=== PATIENT | male | born 1945 | race Caucasian/White ===

== ENCOUNTER 2018-12-27 18:01 | Inpatient (IN) | payer OTHER ==
[~2018-12-27] VITALS: Ht 170.2 cm; Wt 154.6 kg
[~2018-12-27 18:01] MED LIST: ASPI81CH PO; ATOR20 PO; Ambien10 MG PO; CHOL10002; CLON.5 PO; CODITUSSIN AC473 ML PO; FENO160 PO; FURO40 PO; Ferus150 MG; LOSARTAN POTAS100 MG PO; METO25; SERT100 PO; SERT50 PO; Synthroid25 MCG PO; TAMS.4ER PO
[2018-12-27 18:15] LABS: Calcium, Ionized (POC) 1.17 mmol/L (1.10-1.46); Chloride (POC) 101 mmol/L (98-108); Creatinine (POC) 1.3 mg/dL (0.8-1.3); Glucose (ISTAT POC) 193 mg/dL (70-99); Hemoglobin (POC) 11.6 g/dL (13.5-17.5); Potassium (POC) 3.8 mmol/L (3.5-5.5); Sodium (POC) 139 mmol/L (135-148); Total CO2 (POC) 22 mmol/L (21-32)
[2018-12-27 18:30] LABS: BASOPHILS ABSOLUTE AUTO 0.05 K/mm3 (0.00-0.23); BASOPHILS PERCENT AUTO 1 % (0-2); EOSINOPHILS ABSOLUTE AUTO 0.26 K/mm3 (0.00-0.68); EOSINOPHILS PERCENT AUTO 3 % (0-6); Hemoglobin 11.4 g/dL (13.5-17.5); IMMATURE GRAN ABSOLUTE AUTO 0.03 K/mm3 (0.00-0.10); IMMATURE GRAN PERCENT AUTO 0 % (0-1); LYMPHOCYTES ABSOLUTE AUTO 2.25 K/mm3 (0.84-5.20); LYMPHOCYTES PERCENT AUTO 25 % (21-46); MONOCYTES ABSOLUTE AUTO 0.48 K/mm3 (0.16-1.47); MONOCYTES PERCENT AUTO 5 % (4-13); Mean Corpuscular HGB 28.4 pg (26.0-34.0); Mean Corpuscular HGB Conc 31.7 g/dL (31.5-36.5); Mean Corpuscular Volume 90 fL (80-100); Mean Platelet Volume 9.7 fL (9.1-12.4); NEUTROPHILS ABSOLUTE AUTO 6.08 K/mm3 (1.96-9.15); NEUTROPHILS PERCENT AUTO 67 % (41-73); Platelet Count 172 K/mm3 (150-400); RDW Standard Deviation 45.8 fL (35.1-46.3); Red Blood Cell Count 4.02 M/mm3 (4.30-5.90); White Blood Cell Count 9.15 K/mm3 (4.00-11.30)
[2018-12-27] MEDS ORDERED: Flonase 0.05% N16 GM (18:37)
[2018-12-27] MEDS ORDERED: CLOP75 PO (18:37)
[2018-12-27] MEDS ORDERED: PANT40 PO (18:38)
[2018-12-27] MEDS ORDERED: Ranitidine HCl150 M1 PO (18:39)
[2018-12-27 18:44] LABS: International Normalized Ratio 1.05; Prothrombin Time Results 11.1 Sec (9.7-11.5)
[2018-12-27] MEDS ORDERED: FOLI1 PO (18:51)
[2018-12-27] MEDS ORDERED: B-121000 MC2 PO ×2 (18:52)
[2018-12-27 19:02] LABS: Albumin, Blood 2.9 g/dL (3.4-5.0); Albumin/Globulin Ratio 1.1 (0.8-1.8); Bilirubin, Total 0.6 mg/dL (0.1-1.0); Bun/Creatinine Ratio 16.3 (12.0-20.0); Calcium, Blood 8.3 mg/dL (8.5-10.1); Creatinine, Blood 1.29 mg/dL (0.60-1.20); Globulin, Blood 2.6 g/dL (2.2-4.0); Potassium, Blood 3.9 mmol/L (3.5-5.5); Total Protein, Blood 5.5 g/dL (6.4-8.2)
--- NOTE | 2018-12-27 22:40 | NUR ---
ASSUMED PT CARE PT ARRIVED ON UNIT VIA STRETCHER; MOVED OVER TO ICU BED; HOOKED UP TO HEART MONITOR. NSR NOTED WITH HR 70'S. BP 102/54. AFEBRILE TEMP: 97.3. PT IS ALERT AND ORIENTED; ABLE TO FOLLOW COMMANDS. PLEASANT AND COOPERATIVE WITH CARE. NS INFUSING AT 150MLS/HR VIA 18G TO RIGHT AC. PT HAS DARK, RED BLOOD NOTED TO STOOL. PT C/O DIARRHEA ALL DAY; NO EPISODES OF YET. PT DOES NOT APPEAR TO BE IN ANY ACUTE DISTRESS AT THIS TIME.
--- NOTE | 2018-12-27 23:40 | NUR ---
DR. MARTE AT BEDSIDE FOR GI CONSULTATION
[2018-12-28 03:46] LABS: Hematocrit 32.8 % (37.0-53.0); Hemoglobin 10.4 g/dL (13.5-17.5); Mean Corpuscular HGB 28.1 pg (26.0-34.0); Mean Corpuscular HGB Conc 31.7 g/dL (31.5-36.5); Mean Corpuscular Volume 89 fL (80-100); Mean Platelet Volume 10.1 fL (9.1-12.4); Platelet Count 115 K/mm3 (150-400); RDW Coefficient Variation 14.3 % (11.7-14.2); RDW Standard Deviation 46.1 fL (35.1-46.3); White Blood Cell Count 8.22 K/mm3 (4.00-11.30)
[2018-12-28 04:19] LABS: Anion Gap 7 mmol/L (6-16); Blood Urea Nitrogen 24 mg/dL (8-24); Bun/Creatinine Ratio 20.5 (12.0-20.0); CO2, Blood 22 mmol/L (21-32); Calcium, Blood 7.6 mg/dL (8.5-10.1); Chloride, Blood 115 mmol/L (98-108); Creatinine, Blood 1.17 mg/dL (0.60-1.20); Glomerular Filtration Rate >60 (60-); Glucose, Blood 138 mg/dL (70-99); Potassium, Blood 4.3 mmol/L (3.5-5.5); Sodium, Blood 144 mmol/L (136-145)
--- NOTE | 2018-12-28 06:23 | NUR ---
END OF SHIFT SUMMARY PT ARRIVED ON UNIT AROUND 2240. ALERT AND ORIENTED; COOPERATIVE WITH CARE; ABLE TO MAKE NEEDS KNOWN. DR. MARTE AT BEDSIDE TO CONSULT WITH PT AROUND 2330. ORDERS FOR PT TO ONLY CONSUME WATER; START BOWEL PREP AT 0600; AND MAKE PT NPO AT 1300 FOR SCOPE SCHEDULED AT 1400. PT VERBALIZED UNDERSTANDING REGARDING DR. MARTE'S CONSULT. PT HAD TWO LARGE, LOOSE, DARK MAROON/RED STOOLS. BLOOD PRESSURES HAVE REMAINED STABLE T/O SHIFT; WELL HR 70-80'S. PT SLEPT WITH CPAP THAT RT ASSISTED WITH SET UP; 2L BLEED IN TO MASK D/T PT STATING HE HAS A BLEED IN AT HOME; HOWEVER, OXYGEN SATURATIONS MAINTAINED >95% THE ENTIRE NIGHT. PT HAS NS INFUSING AT 150MLS/HR. BOWEL PREP STARTED AT 0600; PT VERY COMPLIANT WITH CARE. PT APPEARS COMFORTABLE AT THIS TIME; CALL LIGHT IN REACH.
[2018-12-28 08:05] LABS: Hematocrit 28.9 % (37.0-53.0); Hemoglobin 9.1 g/dL (13.5-17.5)
--- NOTE | 2018-12-28 10:25 | NUR ---
0710 PT WAS UP TO ROOM COMMODE AND HAD A SYNCOPAL EPISODE. PT WAS DIFFICULT TO RETURN TO BED BUT AROUSED AND ABLE TO ASSST BY STANDING WHILE RETURNING TO BED. PT VS NOTED, NS BOLUS 500ML REQUESTED AND GIVEN. PT QUITE ALERT AND COOP AFTER RETURNNG TO BED. CODE STOPPED. PT VS AND RHYTHM STABLE NOTED. WILL HOLD COLON FLUSH FOR NOW PENDING STAT H/H AND VS TO FOLLOW. COMMODE WAS DILUTE BLOODY RETURN BUT UNABLE TO VISUALIZE CLOTS ETC.
--- NOTE | 2018-12-28 10:32 | NUR ---
POWER GLIJESSICA WAS JUST SUCCESSFULLY PLACE, IVF 150ML, PO MEDS TAKEN 20 MIN AGO AND WILL ALLOW TO DWELL BEFORE STARTING COLON FLUSH AGAIN. PT COOP AND WILLING TO PROCESS TO CONTINUE.
--- NOTE | 2018-12-28 10:48 | NUR ---
PT FAMILY IN TO VISIT. VS NOTED. WILL RESTART GI FLUSH AT THIS TIME.
--- NOTE | 2018-12-28 11:24 | NUR ---
1110 PT UP TO BSC FOR GI FLUSH. PT NOTES SL TRANSIENT DIZZINESS BUT HR UP TO 135. PT HR REMAINS IN 110-115 RANGE. BP SATISFACTORY AND FAMILY IN ROOM. PT PREFERS BEING UP TO COMMODE AND WILL ASSIST WITH OVERALL WOB AND ELEVATED HR TO REST IN BSC WITH FLUSH PROCESS IF TOLERATED.
[2018-12-28 11:47] LABS: Hematocrit 30.1 % (37.0-53.0); Hemoglobin 9.6 g/dL (13.5-17.5)
--- NOTE | 2018-12-28 12:14 | NUR ---
1110 PT INSISITED ON GETTING UP TO BSC AND COULD NOT STOOL ON BEDPAN. PT UP WITH HR TO 135 RANGE AND BP ADIQUAE AND NO DIZZINESS UNTIL APPROX 1140 WHEN PT HR SLOWLY DECREACED, BP DROPPED AND PT BECAME SEMI RESPONSIVE, NOT FULL SYNCOPY UNRESPONSIVE. PT ABLE TO ASSIT BACK TO BED AND RECTAL TUBE WAS PLACED FOR GI FLUSH. PT BP SLOWLY INC. NOTED. DR SANDHU CALLED AND ORDER OBTAINED FOR NS BOLUS OF 500ML. SMALL CLOTS NOTED IN BSC RETURN AND WILL FOLLOW RECTAL BAG RETURN.
[2018-12-28 15:16] LABS: Hematocrit 25.3 % (37.0-53.0); Hemoglobin 8.2 g/dL (13.5-17.5)
--- NOTE | 2018-12-28 15:59 | NUR ---
1300 pt completed go-lyte flush. pt vs are stable and rectal drainageis yellow.
--- NOTE | 2018-12-28 17:58 | NUR ---
PT VS HAVE BEEN STABLE NOTED AN HAS TOLERATED THIS PM WELL. HAS CONT TO BE NPO SENCE 1300. PT REMAINS SR. RECTAL TUBE RETURN REMAINS YELLOW AND PT HAS TOLERATED WELL. FAMILY HAS BEEN IN TO VISIT AND SUPPORT THIS DAY.
--- NOTE | 2018-12-28 18:26 | NUR ---
12/28/18 1826 Chela Kennedy History, Chart, Medications and Allergies reviewed before start of procedure. 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
--- NOTE | 2018-12-28 18:30 | NUR ---
Provided prayer and spiritual support at family request. They are tearful and worried--especially pt's . She was appreciaitive of hugs and assurance of excellent care. It is clear this family is loving and devoted to one another. Mr. Clay appears quite ill and said very little. Film Reader services will remain available.
--- NOTE | 2018-12-28 18:36 | NUR ---
PT COLONOSCOPY STARTED AT APPROX WITH DR MARTE, ANESTHESIA, DAY SURG. RN'S TIMES 2. PT LIGHTLY SEDATED AND VERBAL AT TIMES. SEE VS. PT REMAINS IN NSR. PT HAS VOIDED TIMES 2 TODAY. RECTAL TUBE REMOVED W/O DISTRESS AND RETURN AT TIME REMAINED YELLOW.
--- NOTE | 2018-12-28 19:15 | NUR ---
ASSUMED CARE ASSUMED CARE OF PATIENT. AWAKE AND ALERT. ORIENTED X 3. COLONOSCOPY JUST FINISHED BY DR. MARTE. PT DENIES C/O PAIN OR NAUSEA. ONLY C/O IS THAT HE IS HUNGRY- WILL REEVALUATE DIET ORDER WITH DR. MARTE. BP 119/65. MONITOR SHOWS NSR, RATE 70s. 02 SATS 100% ON RA. RESPIRATIONS EVEN AND UNLABORED AT REST. VOIDS PER URINAL NEEDED. SEE SHIFT ASSESSMENT FOR FULL ASSESSMENT.
[2018-12-28 19:58] LABS: Hematocrit 24.1 % (37.0-53.0); Hemoglobin 7.7 g/dL (13.5-17.5)
[2018-12-28 23:47] LABS: Hematocrit 23.7 % (37.0-53.0); Hemoglobin 7.7 g/dL (13.5-17.5)
--- NOTE | 2018-12-29 00:30 | NUR ---
CPAP PT REQUESTING CPAP AT THIS TIME. CPAP 5-20 WITH 2L O2 BLEED-IN ON AT THIS TIME.
[2018-12-29 03:49] LABS: BASOPHILS ABSOLUTE AUTO 0.03 K/mm3 (0.00-0.23); BASOPHILS PERCENT AUTO 0 % (0-2); EOSINOPHILS ABSOLUTE AUTO 0.22 K/mm3 (0.00-0.68); EOSINOPHILS PERCENT AUTO 2 % (0-6); Hematocrit 24.3 % (37.0-53.0); Hemoglobin 7.7 g/dL (13.5-17.5); IMMATURE GRAN ABSOLUTE AUTO 0.05 K/mm3 (0.00-0.10); IMMATURE GRAN PERCENT AUTO 1 % (0-1); LYMPHOCYTES PERCENT AUTO 23 % (21-46); MONOCYTES ABSOLUTE AUTO 0.64 K/mm3 (0.16-1.47); MONOCYTES PERCENT AUTO 7 % (4-13); Mean Corpuscular HGB 28.2 pg (26.0-34.0); Mean Corpuscular HGB Conc 31.7 g/dL (31.5-36.5); Mean Corpuscular Volume 89 fL (80-100); Mean Platelet Volume 9.4 fL (9.1-12.4); NEUTROPHILS ABSOLUTE AUTO 6.12 K/mm3 (1.96-9.15); NEUTROPHILS PERCENT AUTO 67 % (41-73); Platelet Count 133 K/mm3 (150-400); RDW Coefficient Variation 14.9 % (11.7-14.2); RDW Standard Deviation 48.1 fL (35.1-46.3); Red Blood Cell Count 2.73 M/mm3 (4.30-5.90); White Blood Cell Count 9.16 K/mm3 (4.00-11.30)
[2018-12-29 04:29] LABS: Albumin, Blood 2.7 g/dL (3.4-5.0); Anion Gap 6 mmol/L (6-16); Blood Urea Nitrogen 20 mg/dL (8-24); Bun/Creatinine Ratio 18.7 (12.0-20.0); CO2, Blood 25 mmol/L (21-32); Chloride, Blood 115 mmol/L (98-108); Creatinine, Blood 1.07 mg/dL (0.60-1.20); Glomerular Filtration Rate >60 (60-); Glucose, Blood 115 mg/dL (70-99); Phosphorus, Blood 2.8 mg/dL (2.5-4.9); Potassium, Blood 3.8 mmol/L (3.5-5.5); Sodium, Blood 146 mmol/L (136-145)
--- NOTE | 2018-12-29 06:26 | NUR ---
SHIFT SUMMARY NO ACUTE CHANGES DURING NOC. SLEPT WELL WHEN UNDISTURBED. CONTINUES TO DENY PAIN OR NAUSEA. TOLERATING CARDIAC DIET. NO S/S OF ACTIVE BLEEDING. VOIDING WITHOUT DIFFICULTY. VSS- OCCASIONALLY HYPERTENSIVE DEPENDING ON ACTIVITY. SOB NOTED WITH EXERTION. ON RA WHILE AWAKE AND CPAP WITH 2L BLEED-IN WHEN SLEEPING. WILL REPORT TO DAY SHIFT RN WHEN AVAILABLE.
[2018-12-29 10:39] LABS: Hematocrit 22.1 % (37.0-53.0)
--- NOTE | 2018-12-29 13:23 | NUR ---
REASSESSMENT: PT RECEIVED ANOTHER UNIT OF BLOOD THIS MORNING AND THEN WAS ABLE TO GET UP TO THE COMMODE, THEN CHAIR WITHOUT INCIDENT. PT'S ORTHOSTATIC VITALS NEGATIVE BEFORE GETTING OUT OF BED. PT'S LUNGS REMAIN CLEAR, ON RA. PT IS SIT, BP STABLE. CARDIZEM GIVEN PER DR. MCKAY AND HEART RATE DROPPED FOR 130 TO LOW 100S, STILL SINUS. PT IS EATING WELL, NO NAUSEA. NO EMESIS OR BLOODY STOOLS SO FAR TODAY. CONTINUING TO MONITOR.
[2018-12-29 15:36] LABS: Hematocrit 23.6 % (37.0-53.0); Hemoglobin 7.6 g/dL (13.5-17.5)
--- NOTE | 2018-12-29 17:03 | NUR ---
SHIFT SUMMARY: PT HAS DONE WELL THIS SHIFT WITH NO SYNCOPAL OR NEAR SYNCOPAL EPISODES. HE HAS BEEN OUT OF BED TWICE. DENIES ANY DIZZINESS. HE GOT A UNIT OF BLOOD AND TOLERATED IT WELL. HIS HR IS STILL SIT IN THE LOW 100S, HYPERTENSIVE THIS EVENING. LUNGS CLEAR, ON RA. HE IS EATING AND TOLERATING HIS DIET. NO BMS TODAY SO FAR. CONTIINUING TO MONITOR.
--- NOTE | 2018-12-29 19:30 | NUR ---
ASSUMED PT CARE PT SITTING UP IN BED WITH FAMILY AT BEDSIDE VISITING. PT IS ALERT AND ORIENTED; ABLE TO MAKE NEEDS KNOWN. DENIES THE NEED FOR ANYTHING AT THE MOMENT. STATES HE WILL UTILIZE CALL LIGHT IF NEEDED.
[2018-12-29 21:51] LABS: Hematocrit 23.3 % (37.0-53.0); Hemoglobin 7.5 g/dL (13.5-17.5)
[2018-12-30 04:10] LABS: Hemoglobin 7.6 g/dL (13.5-17.5)
[2018-12-30 04:13] LABS: BASOPHILS ABSOLUTE AUTO 0.03 K/mm3 (0.00-0.23); BASOPHILS PERCENT AUTO 1 % (0-2); EOSINOPHILS ABSOLUTE AUTO 0.16 K/mm3 (0.00-0.68); EOSINOPHILS PERCENT AUTO 3 % (0-6); Hematocrit 22.9 % (37.0-53.0); Hemoglobin 7.5 g/dL (13.5-17.5); IMMATURE GRAN ABSOLUTE AUTO 0.05 K/mm3 (0.00-0.10); IMMATURE GRAN PERCENT AUTO 1 % (0-1); LYMPHOCYTES ABSOLUTE AUTO 1.14 K/mm3 (0.84-5.20); LYMPHOCYTES PERCENT AUTO 23 % (21-46); MONOCYTES ABSOLUTE AUTO 0.32 K/mm3 (0.16-1.47); MONOCYTES PERCENT AUTO 6 % (4-13); Mean Corpuscular HGB 28.7 pg (26.0-34.0); Mean Corpuscular HGB Conc 32.8 g/dL (31.5-36.5); Mean Corpuscular Volume 88 fL (80-100); Mean Platelet Volume 9.3 fL (9.1-12.4); NEUTROPHILS ABSOLUTE AUTO 3.28 K/mm3 (1.96-9.15); NEUTROPHILS PERCENT AUTO 66 % (41-73); Platelet Count 101 K/mm3 (150-400); RDW Coefficient Variation 14.5 % (11.7-14.2); RDW Standard Deviation 46.1 fL (35.1-46.3); Red Blood Cell Count 2.61 M/mm3 (4.30-5.90); White Blood Cell Count 4.98 K/mm3 (4.00-11.30)
[2018-12-30 04:36] LABS: Albumin, Blood 2.7 g/dL (3.4-5.0); Anion Gap 6 mmol/L (6-16); Blood Urea Nitrogen 17 mg/dL (8-24); Bun/Creatinine Ratio 17.8 (12.0-20.0); CO2, Blood 27 mmol/L (21-32); Calcium, Blood 8.4 mg/dL (8.5-10.1); Chloride, Blood 110 mmol/L (98-108); Creatinine, Blood 0.95 mg/dL (0.60-1.20); Glomerular Filtration Rate >60 (60-); Glucose, Blood 107 mg/dL (70-99); Phosphorus, Blood 3.1 mg/dL (2.5-4.9); Potassium, Blood 3.9 mmol/L (3.5-5.5); Sodium, Blood 143 mmol/L (136-145)
--- NOTE | 2018-12-30 05:54 | NUR ---
END OF SHIFT SUMMARY PT HAS REMAINED ALERT AND ORIENTED T/O SHIFT; NO SYNCOPAL EPISODES. ASSISTED TO TOILET WITH TWO PERSON ASSIST FOR SAFETY X4 WITH ATTEND CHANGE AND LINEN CHANGE FREQUENTLY WELL. PT DENIES ANY DIZZINESS/LIGHTHEADEDNESS. HRR TENDS TO INCREASE DURING EXERTION, WELL PT BECOMES SOB. OXYGEN SATURATIONS MAINTAIN >93% DURING EPISODES OF SOB. PT IS SALINE LOCKED. POWERGLIDE TO RIGHT UPPER ARM HAD DIFFICULTY DRAWING BLOOD THIS AM; HOWEVER, FLUSHES JUST FINE. PT DENIES ANY PAIN OR DISCOMFORT. PT DOES NOT APPEAR TO BE IN ANY DISTRESS AT THIS TIME.
--- NOTE | 2018-12-30 09:00 | NUR ---
PT PLEASANT COOP A/O DENIES PAIN. STATES FEELS PRETTY GOOD. NO BLEEDING IN STOOL PER PT. LARGE ROUND ABD. SOFT NONTENDER. H/R REG, NO MURMER NOTED. SEE MONITOR STRIP. LUNGS CLEAR, REWP EASY, UNLABORED. ON R/A. BT X4 LAST BM YEST. STATES NO BLEEDING NOTED. VOIDS BSC SBA. CALL LITE IN REACH, CALLS APPROP. PT SITING UP IN BED TALKING AT THIS TIME. .
--- NOTE | 2018-12-30 18:35 | NUR ---
2ND UNIT BLOOD COMPLETED AT 1800. PT LUNGS CLEAR. PT STATES FEELS PRETTY WELL. DID TAKE SHOWER THIS PRUDENCE. LAST BM AGAIN BROWN, LIGHT SOFT FORMED. NO BLOODINEESS NOTED. NO OTHER CONCERNS AT THIS TIME . BED IN LOW POSITION, CALL LITE IN REACH , CALLS APPROP
--- NOTE | 2018-12-30 19:15 | NUR ---
ASSUMED PT CARE FROM DOLLY JO. PT UP IN CHAIR VISITING WITH FAMILY. ALERT AND ORIENTED; PLEASANT AND COOPERATIVE WITH CARE. PT ABLE TO MAKE HIS NEEDS KNOWN. CALL LIGHT IN REACH. PT DOES NOT APPEAR IN ANY DISTRESS AT THIS TIME.
[2018-12-30 20:29] LABS: Hematocrit 30.4 % (37.0-53.0); Hemoglobin 10.1 g/dL (13.5-17.5)
--- NOTE | 2018-12-30 21:45 | NUR ---
PT FOUND SELF TRANSFERRING. PT ENCOURAGED TO CALL FOR ASSISTANCE PRIOR TO TRANSFERRING D/T HIS SYNCOPAL EPISODE ON THE TOILET A COUPLE DAYS AGO, WELL ELEVATED HR TO 150'S WITH EXERTION. PT STATED HE SOMETIMES CAN'T WAIT UNTIL THE CALL LIGHT IS ANSWERED TO GET TO THE BATHROOM IN TIME. PT AGREED HE WOULD CALL, BUT HE WOULD ALSO SELF TRANSFER HIMSELF IF HE CAN'T WAIT ANY LONGER.
[2018-12-31 04:16] LABS: Hematocrit 28.8 % (37.0-53.0); Hemoglobin 9.5 g/dL (13.5-17.5)
--- NOTE | 2018-12-31 05:43 | NUR ---
END OF SHIFT SUMMARY PT HAS REMAINED PLEASANT AND COOPERATIVE T/O SHIFT. AFTER ENCOURAGING PT TO CALL FOR HELP IN REGARDS TO TRANSFERRING TO BSC PT WAS COMPLIANT AND DID SO. NO SYNCOPE OR BLOOD STOOLS NOTED THIS SHIFT. PT IS RESTING COMFORTABLY WITH CPAP ON WITH 2L BLEED IN AND OXYGEN SATURATIONS AT 100%. PT DOES NOT APPEAR TO BE IN ANY DISTRESS AT THIS TIME.
--- NOTE | 2018-12-31 08:00 | NUR ---
MALE PATIENT WAITING TO BE DISCHARGED. UP TO CHAIR. DR AGUILAR IN TO SEE PAT. DISCHARGE INSTRUCTIONS REVIEWED. LUNGS. HAD A BM W/O ANY BLOOD NOTED. MOTHER COMING TO WEB PRESS OPERATOR HELPER OFFSET PATIENT.
--- NOTE | 2018-12-31 12:20 | NUR ---
DISCHARGERED HOME WITH MOTHER AND HIS DAUGHTER.
== END 2018-12-31 12:15 | disposition home or self-care (01) | DRG 378 ==
LOC: ER 18:01 → ICUE 19:28 → ERHOLD 19:28 → ICUE 22:28
PROVIDERS: Emergency Medicine; Internal Medicine; Internal Medicine Gastroenterology; ADMIT Internal Medicine
PROC: 0DBN8ZX Excision of Sigmoid Colon, Via Natural or Artificial Opening Endoscopic, Diagnostic (ICD-10-PCS; 2018-12-28)
PROC: 30233N1 Transfusion of Nonautologous Red Blood Cells into Peripheral Vein, Percutaneous Approach (ICD-10-PCS; principal; 2018-12-28 17:45)
DX: K57.31 Diverticulosis of large intestine without perforation or abscess with bleeding (principal); D62 Acute posthemorrhagic anemia; I50.32 Chronic diastolic (congestive) heart failure; I95.9 Hypotension, unspecified; I11.0 Hypertensive heart disease with heart failure; E11.9 Type 2 diabetes mellitus without complications; Z79.01 Long term (current) use of anticoagulants; Z87.891 Personal history of nicotine dependence; Z95.4 Presence of other heart-valve replacement; N40.0 Benign prostatic hyperplasia without lower urinary tract symptoms; F32.9 Major depressive disorder, single episode, unspecified; F41.9 Anxiety disorder, unspecified; K74.60 Unspecified cirrhosis of liver; K64.8 Other hemorrhoids; I69.398 Other sequelae of cerebral infarction; K76.0 Fatty (change of) liver, not elsewhere classified; E03.9 Hypothyroidism, unspecified; R00.0 Tachycardia, unspecified; R55 Syncope and collapse; I25.10 Atherosclerotic heart disease of native coronary artery without angina pectoris
CPT/HCPCS: 36415; 36430; 70450; 74177; 80047; 80048; 80053; 80069; 82330; 82947; 85014; 85018; 85025; 85027; 85610; 85730; 86850; 86900; 86901; 86923; 93005; 93010; 94660; 96361; 96374-59; 99285-25; C1751; C9113; J0610; J1940; J2250; J2370; J7030; J7040; J7050; J7120; P9016; Q9967

== ENCOUNTER 2019-08-08 17:09 | Observation (INO) | payer OTHER ==
[~2019-08-08] VITALS: Ht 170.2 cm; Wt 151.4 kg
[~2019-08-08 17:09] MED LIST changes: +B-121000 MC2 PO; -CHOL10002; +CLOP75 PO; +FOLI1 PO; +Flonase 0.05% N16 GM; +PANT40 PO; +Ranitidine HCl150 M1 PO; +VITAMIN D31000 UNI2 PO
[2019-08-08 18:33] LABS: BASOPHILS ABSOLUTE AUTO 0.03 K/mm3 (0.00-0.23); BASOPHILS PERCENT AUTO 0 % (0-2); EOSINOPHILS ABSOLUTE AUTO 0.22 K/mm3 (0.00-0.68); EOSINOPHILS PERCENT AUTO 3 % (0-6); Hematocrit 30.5 % (37.0-53.0); Hemoglobin 9.6 g/dL (13.5-17.5); IMMATURE GRAN ABSOLUTE AUTO 0.05 K/mm3 (0.00-0.10); IMMATURE GRAN PERCENT AUTO 1 % (0-1); LYMPHOCYTES ABSOLUTE AUTO 1.27 K/mm3 (0.84-5.20); LYMPHOCYTES PERCENT AUTO 16 % (21-46); MONOCYTES ABSOLUTE AUTO 0.58 K/mm3 (0.16-1.47); MONOCYTES PERCENT AUTO 7 % (4-13); Mean Corpuscular HGB 27.4 pg (26.0-34.0); Mean Corpuscular HGB Conc 31.5 g/dL (31.5-36.5); Mean Corpuscular Volume 87 fL (80-100); Mean Platelet Volume 9.9 fL (9.1-12.4); NEUTROPHILS ABSOLUTE AUTO 5.84 K/mm3 (1.96-9.15); NEUTROPHILS PERCENT AUTO 73 % (41-73); Platelet Count 168 K/mm3 (150-400); RDW Coefficient Variation 13.6 % (11.7-14.2); RDW Standard Deviation 42.6 fL (35.1-46.3); White Blood Cell Count 7.99 K/mm3 (4.00-11.30)
[2019-08-08 19:21] LABS: Albumin, Blood 3.4 g/dL (3.4-5.0); Albumin/Globulin Ratio 1.1 (0.8-1.8); Bilirubin, Total 0.4 mg/dL (0.1-1.0); Bun/Creatinine Ratio 21.6 (12.0-20.0); Calcium, Blood 8.9 mg/dL (8.5-10.1); Creatinine, Blood 1.34 mg/dL (0.60-1.20); Globulin, Blood 3.2 g/dL (2.2-4.0); Potassium, Blood 4.1 mmol/L (3.5-5.5); Total Protein, Blood 6.6 g/dL (6.4-8.2)
[2019-08-08 20:14] LABS: Bilirubin, Urine Neg (Neg); Blood, Urine Neg (Neg); Glucose Qualitative, Urine Neg (Neg); Ketones, Urine Neg (Neg); Leukocyte Esterase, Urine Neg (Neg); Nitrite, Urine Neg (Neg); Protein, Urine Neg (Neg); Specific Gravity, Urine 1.015 (1.003-1.022); Urobilinogen, Urine NORM (Normal)
[2019-08-08 20:19] LABS: Appearance, Urine Clear (Clear); Color, Urine Yellow (P-Yellow)
--- NOTE | 2019-08-09 05:03 | NUR ---
SHIFT SUMMARY PT REPORTS NUMBNESS TO LIPS AND R FINGERS. STATES SYMPTOMS STARTED ON TUESDAY, AUG 06 AFTER HAVING ONE EPISODE OF DARK BLOODY STOOL. PT ALSO HAD A FALL ON TUESDAY, DESCRIBED MORE A SYNCOPAL EVENT. TELE IN PLACE; NSR @ 90s PT IS A&OX4, INDEPENDENT IN RM. SBA IN RM, SAFE FOR INDEPENDENT AMBULATE BUT HX OF FALLS WARRANT NEED FOR CLOSER WATCH. MRI IN AM; SCREENING FORM SENT. WILL CONT TO MONITOR AND PROVIDE CARE UNTIL PRESUMED BY ONCOMING RN.
[2019-08-09 05:22] LABS: Hemoglobin 8.5 g/dL (13.5-17.5); Mean Corpuscular HGB 27.3 pg (26.0-34.0); Mean Corpuscular HGB Conc 31.5 g/dL (31.5-36.5); Mean Corpuscular Volume 87 fL (80-100); Mean Platelet Volume 9.7 fL (9.1-12.4); Platelet Count 137 K/mm3 (150-400); RDW Coefficient Variation 13.6 % (11.7-14.2); RDW Standard Deviation 42.4 fL (35.1-46.3); Red Blood Cell Count 3.11 M/mm3 (4.30-5.90); White Blood Cell Count 5.96 K/mm3 (4.00-11.30)
[2019-08-09 05:47] LABS: Alanine Aminotransfer (ALT/SGP 11 U/L (12-78); Alk Phos 76 U/L (50-136); Anion Gap 5 mmol/L (6-16); Aspartate Aminotrans (AST/SGOT 12 U/L (12-37); Bilirubin, Total 0.4 mg/dL (0.1-1.0); Blood Urea Nitrogen 26 mg/dL (8-24); CO2, Blood 26 mmol/L (21-32); Calcium, Blood 8.8 mg/dL (8.5-10.1); Chloride, Blood 109 mmol/L (98-108); Creatinine, Blood 1.13 mg/dL (0.60-1.20); Globulin, Blood 2.9 g/dL (2.2-4.0); Glomerular Filtration Rate >60 (60-); Glucose, Blood 108 mg/dL (70-99); Potassium, Blood 3.7 mmol/L (3.5-5.5); Sodium, Blood 140 mmol/L (136-145); Total Protein, Blood 5.9 g/dL (6.4-8.2)
[2019-08-09 12:31] LABS: Hematocrit 29.7 % (37.0-53.0); Hemoglobin 9.1 g/dL (13.5-17.5)
--- NOTE | 2019-08-09 13:21 | NUR ---
Echocardiogram completed.
--- NOTE | 2019-08-09 16:38 | NUR ---
SHIFT SUMMARY: PT IS A/O X 4 WITH NO C/O PAIN. PT WENT FOR AN MRI THIS AFTERNOON AND IT WAS UNSUCCESSFUL DUE TO HIM NOT BEING ABLE TO FIT IN THE MACHINE. DR VIDAL WAS NOTIFIED OF THIS. DR KILLIAN HAS BEEN CONSULTED ON HIS CASE AND ORDERED A GI BLOOD LOSS EXAM WHICH IS SCHEDULED FOR TOMORROW. PT HAS BEEN RESTING IN BED WITH FAMILY VISITING THIS MORNING. PT USES CALL LIGHT FOR HELP WHEN NEEDED.
--- NOTE | 2019-08-10 05:23 | NUR ---
SHIFT SUMMARY: A/Ox4. VSS. Making needs known. Seemed to have slept well most of noc. CPAP and continous oximetry in place. O2 sats 92-96% on RA. Reports perioral and R hand numbness and tingling is steadily improving since admission. States he had a BM during the day on 08/09 that was maroon colored. Pt NPO after midnight. Endoscopy prescreen added and interventions completed that were applicable to this shift. Call light within reach.
[2019-08-10 08:29] LABS: BASOPHILS ABSOLUTE AUTO 0.03 K/mm3 (0.00-0.23); BASOPHILS PERCENT AUTO 1 % (0-2); EOSINOPHILS ABSOLUTE AUTO 0.22 K/mm3 (0.00-0.68); EOSINOPHILS PERCENT AUTO 4 % (0-6); Hematocrit 26.3 % (37.0-53.0); Hemoglobin 8.1 g/dL (13.5-17.5); IMMATURE GRAN ABSOLUTE AUTO 0.05 K/mm3 (0.00-0.10); IMMATURE GRAN PERCENT AUTO 1 % (0-1); LYMPHOCYTES ABSOLUTE AUTO 1.09 K/mm3 (0.84-5.20); LYMPHOCYTES PERCENT AUTO 19 % (21-46); MONOCYTES ABSOLUTE AUTO 0.47 K/mm3 (0.16-1.47); MONOCYTES PERCENT AUTO 8 % (4-13); Mean Corpuscular HGB 27.3 pg (26.0-34.0); Mean Corpuscular HGB Conc 30.8 g/dL (31.5-36.5); Mean Corpuscular Volume 89 fL (80-100); Mean Platelet Volume 9.6 fL (9.1-12.4); NEUTROPHILS ABSOLUTE AUTO 3.81 K/mm3 (1.96-9.15); NEUTROPHILS PERCENT AUTO 67 % (41-73); Platelet Count 146 K/mm3 (150-400); RDW Coefficient Variation 13.9 % (11.7-14.2); RDW Standard Deviation 43.4 fL (35.1-46.3); Red Blood Cell Count 2.97 M/mm3 (4.30-5.90); White Blood Cell Count 5.67 K/mm3 (4.00-11.30)
--- NOTE | 2019-08-10 12:18 | NUR ---
INTO [facility] VIA [facility]. HISTORY AND ALLERGIES REVIEWED. NPO STATUS CONFIRMED. LUNGS DISTANT IN BASES, BUT MAINTAINS SATS>90% ON RA.
--- NOTE | 2019-08-10 12:33 | NUR ---
08/10/19 1233 Reyna Isbell PROCEDURE ROOM ENDO #1.
[2019-08-10 13:51] LABS: Hematocrit 27.4 % (37.0-53.0); Hemoglobin 8.3 g/dL (13.5-17.5)
[2019-08-10 14:07] LABS: Prothrombin Time Results 10.6 Sec (9.7-11.5)
[2019-08-10 14:10] LABS: Alanine Aminotransfer (ALT/SGP 15 U/L (12-78); Albumin, Blood 3.2 g/dL (3.4-5.0); Alk Phos 80 U/L (50-136); Anion Gap 3 mmol/L (6-16); Aspartate Aminotrans (AST/SGOT 13 U/L (12-37); Bilirubin, Total 0.4 mg/dL (0.1-1.0); Blood Urea Nitrogen 27 mg/dL (8-24); Bun/Creatinine Ratio 22.7 (12.0-20.0); CO2, Blood 28 mmol/L (21-32); Chloride, Blood 108 mmol/L (98-108); Creatinine, Blood 1.19 mg/dL (0.60-1.20); Globulin, Blood 3.1 g/dL (2.2-4.0); Glomerular Filtration Rate >60 (60-); Glucose, Blood 115 mg/dL (70-99); Potassium, Blood 3.9 mmol/L (3.5-5.5); Sodium, Blood 139 mmol/L (136-145); Total Protein, Blood 6.3 g/dL (6.4-8.2)
--- NOTE | 2019-08-10 19:37 | NUR ---
SHIFT SUMMARY- PT ALERT AND ORIENTED AND INDEPENDENT IN THE ROOM. PT HAS HAD NO C/O PAIN AND NO S&S OF DISTRESS. PT HAD A BM LATE IN THE DAY THAT WAS DARK BROWN IN COLOR, NO MAROON STOOLS SEEN TODAY. PT STATED THE N/T ON THE RIGHT SIDE OF THE FACE IS LESS AND DENIES N/T OF THE RIGHT HAND NOW. POST OP VITALS BEING DONE Q4 AT THIS TIME.
[2019-08-11 05:20] LABS: BASOPHILS ABSOLUTE AUTO 0.03 K/mm3 (0.00-0.23); BASOPHILS PERCENT AUTO 1 % (0-2); EOSINOPHILS PERCENT AUTO 3 % (0-6); Hematocrit 26.3 % (37.0-53.0); Hemoglobin 8.3 g/dL (13.5-17.5); IMMATURE GRAN ABSOLUTE AUTO 0.04 K/mm3 (0.00-0.10); IMMATURE GRAN PERCENT AUTO 1 % (0-1); LYMPHOCYTES ABSOLUTE AUTO 1.07 K/mm3 (0.84-5.20); LYMPHOCYTES PERCENT AUTO 16 % (21-46); MONOCYTES PERCENT AUTO 8 % (4-13); Mean Corpuscular HGB 27.9 pg (26.0-34.0); Mean Corpuscular HGB Conc 31.6 g/dL (31.5-36.5); Mean Corpuscular Volume 89 fL (80-100); Mean Platelet Volume 9.4 fL (9.1-12.4); NEUTROPHILS ABSOLUTE AUTO 4.73 K/mm3 (1.96-9.15); NEUTROPHILS PERCENT AUTO 72 % (41-73); Platelet Count 144 K/mm3 (150-400); RDW Coefficient Variation 14.2 % (11.7-14.2); RDW Standard Deviation 43.9 fL (35.1-46.3); Red Blood Cell Count 2.97 M/mm3 (4.30-5.90); White Blood Cell Count 6.57 K/mm3 (4.00-11.30)
--- NOTE | 2019-08-11 08:00 | NUR ---
ASSUMED CARE OF PT- BEDSIDE REPORT COMPLETED WITH NIGHT RN CRISTIANA. PER REPORT PT HAD NO SIGNIFICANT CHANGES T/O THE NIGHT. PT STILL STATES N/T AROUND THE LEFT SIDE OF THE MOUTH, BUT STATES IT IS "WAY BETTER THAN WHEN HE FIRST GOT HERE." DR VIDAL CAME TO SEE THE PT. PT WANTS TO DC HOME WHEN IS READY TO DC. DR VIDAL WAITING TO HEAR FROM DR KILLIAN PRIOR TO WRITING DISCHARGE ORDERS.
--- NOTE | 2019-08-11 10:24 | NUR ---
SPOKE TO DR KILLIAN- DR VIDAL WANTING TO DC PT IF OK WITH GI. PER DR KILLIAN OK FOR PT TO DISCHAGRE HOME TODAY FROM HIS POINT OF VIEW. SPOKE TO DR VIDAL SHE IS AWARE.
[2019-08-11] MEDS ORDERED: PANT40 PO (12:33)
--- NOTE | 2019-08-11 14:48 | NUR ---
DISCHARGE NOTE- PT WAS GIVEN VERBAL AND WRITTEN DISCHARGE INSTRUCTIONS AND ACKNOWLEDGED UNDERTSTANDING OF THEM. PT GIVEN HARD COPY SCRIPT FOR MRI OUT PT. NO S&S OF DISTRESS NOTED PT IV'S AND TELE DC'D PRIOR TO PT DISCHARGE. NO FURTHER QUESTIONS AT THE TIME OF DISCHARGE.
== END 2019-08-11 14:33 | disposition home or self-care (01) ==
LOC: ER 17:09 → MEDS 17:10
PROVIDERS: Emergency Medicine; Family Medicine; Internal Medicine Gastroenterology; ADMIT Internal Medicine
PROC: 0DJ08ZZ Inspection of Upper Intestinal Tract, Via Natural or Artificial Opening Endoscopic (ICD-10-PCS; principal; 2019-08-11)
DX: K29.81 Duodenitis with bleeding (principal); D62 Acute posthemorrhagic anemia; R20.0 Anesthesia of skin; F32.9 Major depressive disorder, single episode, unspecified; E66.9 Obesity, unspecified; I11.0 Hypertensive heart disease with heart failure; I50.32 Chronic diastolic (congestive) heart failure; N40.0 Benign prostatic hyperplasia without lower urinary tract symptoms; E11.9 Type 2 diabetes mellitus without complications; D69.6 Thrombocytopenia, unspecified; I95.9 Hypotension, unspecified; E03.9 Hypothyroidism, unspecified; Z79.899 Other long term (current) drug therapy; Z86.79 Personal history of other diseases of the circulatory system; Z86.73 Personal history of transient ischemic attack (TIA), and cerebral infarction without residual deficits; Z79.02 Long term (current) use of antithrombotics/antiplatelets; Z87.891 Personal history of nicotine dependence; Z95.2 Presence of prosthetic heart valve; Z68.43 Body mass index [BMI] 50.0-59.9, adult
CPT/HCPCS: 36415; 70450; 71046; 74177; 78278; 80053; 81003; 83880; 85014; 85018; 85025; 85027; 85610; 86850; 86900; 86901; 93005; 93010; 93306; 94660; 94762; 96374; 96375; 96376; 99285-25; A9560; C9113; G0378; J2060; J2704; J7120; Q9967

== ENCOUNTER 2019-10-09 19:27 | Observation (INO) | payer OTHER ==
[~2019-10-09] VITALS: Ht 170.2 cm; Wt 154.7 kg
[~2019-10-09 19:27] MED LIST changes: -ATOR20 PO; +ATOR40TA PO; -FURO40 PO; -METO25; +METO25 PO; -VITAMIN D31000 UNI2 PO; +VITAMIN D31000 UNI3 PO
[2019-10-09 20:09] LABS: BASOPHILS ABSOLUTE AUTO 0.03 K/mm3 (0.00-0.23); BASOPHILS PERCENT AUTO 0 % (0-2); EOSINOPHILS ABSOLUTE AUTO 0.25 K/mm3 (0.00-0.68); EOSINOPHILS PERCENT AUTO 3 % (0-6); Hematocrit 37.1 % (37.0-53.0); Hemoglobin 11.3 g/dL (13.5-17.5); IMMATURE GRAN ABSOLUTE AUTO 0.03 K/mm3 (0.00-0.10); IMMATURE GRAN PERCENT AUTO 0 % (0-1); LYMPHOCYTES ABSOLUTE AUTO 0.97 K/mm3 (0.84-5.20); LYMPHOCYTES PERCENT AUTO 13 % (21-46); MONOCYTES ABSOLUTE AUTO 0.49 K/mm3 (0.16-1.47); MONOCYTES PERCENT AUTO 7 % (4-13); Mean Corpuscular HGB 25.1 pg (26.0-34.0); Mean Corpuscular HGB Conc 30.5 g/dL (31.5-36.5); Mean Corpuscular Volume 82 fL (80-100); Mean Platelet Volume 10.1 fL (9.1-12.4); NEUTROPHILS ABSOLUTE AUTO 5.51 K/mm3 (1.96-9.15); NEUTROPHILS PERCENT AUTO 76 % (41-73); Platelet Count 157 K/mm3 (150-400); RDW Coefficient Variation 14.7 % (11.7-14.2); RDW Standard Deviation 44.4 fL (35.1-46.3); White Blood Cell Count 7.28 K/mm3 (4.00-11.30)
[2019-10-09 20:24] LABS: International Normalized Ratio 0.99; Prothrombin Time Results 10.5 Sec (9.7-11.5)
[2019-10-09 20:25] LABS: Alanine Aminotransfer (ALT/SGP 19 U/L (12-78); Albumin, Blood 3.3 g/dL (3.4-5.0); Albumin/Globulin Ratio 0.9 (0.8-1.8); Alk Phos 107 U/L (50-136); Anion Gap 6 mmol/L (6-16); Aspartate Aminotrans (AST/SGOT 15 U/L (12-37); Bilirubin, Total 0.4 mg/dL (0.1-1.0); Blood Urea Nitrogen 17 mg/dL (8-24); Bun/Creatinine Ratio 17.5 (12.0-20.0); CO2, Blood 27 mmol/L (21-32); Calcium, Blood 8.6 mg/dL (8.5-10.1); Chloride, Blood 105 mmol/L (98-108); Creatinine, Blood 0.97 mg/dL (0.60-1.20); Globulin, Blood 3.5 g/dL (2.2-4.0); Glomerular Filtration Rate >60 (60-); Glucose, Blood 136 mg/dL (70-99); Potassium, Blood 3.8 mmol/L (3.5-5.5); Sodium, Blood 138 mmol/L (136-145); Total Protein, Blood 6.8 g/dL (6.4-8.2)
[2019-10-09] MEDS ORDERED: FURO40 PO (21:31)
--- NOTE | 2019-10-09 21:48 | NUR ---
PATIENT ARRIVED TO THE FLOOR VIA WC, TRANSFERRED SELF TO BED. ADMITTED FOR CVA. REPORTS WENT TO THE DOCTOR TO FIQURED OUT WHY HE HAD NUMBNESS IN THIS RIGHT HAND DIGITS, AND RIGHT SIDE OF LIPS. WHICH HE HAS HAD SINCE AUGUST. DID MRI TODAY, AND THEN GOT A CALL REPORTING TO GO TO ER DUE TO MRI SHOWING HE HAD A RECENT STROKE. THEY ARE UNSURE WHEN THIS OCCURRED THE PATIENT DID NOT HAVE ANY NEW SIGNS OR SYMTPOMS. DR. ALLAN ARRIVED I WAS ADMITTING THE PATIENT. SHE DID A COMPLETE NEURO CHECK WITH ME AT THE SIDE OF BED, WITH NO NOTICABLE NEURO DEFICITS. INFORMED MD OF THE ELEVATION IN BLOOD PRESSURE, STATE SHE DOES NOT WANT TO DO ANYTHING FOR THIS AT THIS TIME DUE TO CVA.FINISHED HIS ASSESSMENT AND COMPLETED HIS ADMISSION. WILL CONTIUE TO MONITOR THROUGHOUT THE NIGHT.
--- NOTE | 2019-10-10 05:42 | NUR ---
SHIFT SUMMARY: 74 Y/O MALE ADMITED FOR CVA. KIT VITALS HAVE REMAINED SLIGHTLY ELEVATED ON HIS BP. MD WAS NOTIFIED AND REPORTED SHE DID NOT WANT TO BRING HIS BLOOD PRESSURE DOWN TO QUICK DUE TO CVA. KIT DID NOT DEVELOP ANY NEW SYMPTOMS THIS SHIFT. NEURO CHECKS WERE ALL NEGATIVE EXCEPT THE RIGHT HAND 3RD,4TH, AND 5TH DIGIT AND RIGHT SIDE OF LIPS. WHICH HE HAS HAD THESE SYMPTOMS SINCE AUGUST. RT WAS CALLED AND PATIENT WAS PLACED ON CONTINUOUS BIOX AND CPAP FOR SLEEP. SATS AND HR REMAINED WNL ALL SHIFT. HE HAD NO ACUTE CHANGES OR CONCERNS THIS SHIFT. WILL REPORT TO DAY SHIFT RN.
--- NOTE | 2019-10-10 11:12 | NUR ---
Echocardiogram completed.
--- NOTE | 2019-10-10 17:02 | NUR ---
SHIFT SUMMARY NO ACUTE CHANGES THIS SHIFT, AWAITING D/C HOME AFTER ECHO IS READ PER DR. GALLEGOS. PT DENIED PAIN DURING THIS SHIFT. PT HAD A GOOD APETITE THIS SHIFT. PT ALERT AND ORIENTED X4. CALL LIGHT WITH IN REACH AND WILL COUNTINUE TO MONITOR THE REMAINDER OF THIS RN'S SHIFT. WILL REPORT TO NOC RN
== END 2019-10-10 19:25 | disposition home or self-care (01) ==
LOC: ER 19:27 → MEDS 19:28
PROVIDERS: Emergency Medicine; ADMIT Family Medicine
DX: I63.231 Cerebral infarction due to unspecified occlusion or stenosis of right carotid arteries (principal); I11.0 Hypertensive heart disease with heart failure; I50.32 Chronic diastolic (congestive) heart failure; E11.9 Type 2 diabetes mellitus without complications; F32.9 Major depressive disorder, single episode, unspecified; N40.0 Benign prostatic hyperplasia without lower urinary tract symptoms; D69.6 Thrombocytopenia, unspecified; K74.60 Unspecified cirrhosis of liver; E03.9 Hypothyroidism, unspecified; K21.9 Gastro-esophageal reflux disease without esophagitis; I35.0 Nonrheumatic aortic (valve) stenosis; D64.9 Anemia, unspecified; G47.33 Obstructive sleep apnea (adult) (pediatric); E66.01 Morbid (severe) obesity due to excess calories; Z68.43 Body mass index [BMI] 50.0-59.9, adult; Z95.2 Presence of prosthetic heart valve; Z86.73 Personal history of transient ischemic attack (TIA), and cerebral infarction without residual deficits; Z99.89 Dependence on other enabling machines and devices; Z96.653 Presence of artificial knee joint, bilateral; Z87.891 Personal history of nicotine dependence; Z79.51 Long term (current) use of inhaled steroids; Z79.02 Long term (current) use of antithrombotics/antiplatelets; Z79.899 Other long term (current) drug therapy
CPT/HCPCS: 36415; 70496; 70498; 70551; 80053; 82947; 85025; 85610; 85730; 93005; 93010; 93308; 93321; 94660; 94762; 96372; 99285-25; G0378; J1650; Q9967

== ENCOUNTER 2020-01-08 15:59 | Observation (INO) | payer OTHER ==
[~2020-01-08] VITALS: Ht 170.2 cm; Wt 151.9 kg
[~2020-01-08 15:59] MED LIST changes: -ATOR40TA PO; -Ambien10 MG PO; -CLOP75 PO; -FOLI1 PO; -Flonase 0.05% N16 GM; -LOSARTAN POTAS100 MG PO; -METO25 PO; -SERT100 PO; -Synthroid25 MCG PO; -TAMS.4ER PO; -VITAMIN D31000 UNI3 PO
[2020-01-08 17:48] LABS: BASOPHILS ABSOLUTE AUTO 0.04 K/mm3 (0.00-0.23); BASOPHILS PERCENT AUTO 1 % (0-2); EOSINOPHILS ABSOLUTE AUTO 0.22 K/mm3 (0.00-0.68); EOSINOPHILS PERCENT AUTO 3 % (0-6); Hematocrit 31.1 % (37.0-53.0); Hemoglobin 9.1 g/dL (13.5-17.5); IMMATURE GRAN ABSOLUTE AUTO 0.04 K/mm3 (0.00-0.10); IMMATURE GRAN PERCENT AUTO 1 % (0-1); LYMPHOCYTES ABSOLUTE AUTO 1.13 K/mm3 (0.84-5.20); LYMPHOCYTES PERCENT AUTO 17 % (21-46); MONOCYTES ABSOLUTE AUTO 0.51 K/mm3 (0.16-1.47); MONOCYTES PERCENT AUTO 8 % (4-13); Mean Corpuscular HGB 22.9 pg (26.0-34.0); Mean Corpuscular HGB Conc 29.3 g/dL (31.5-36.5); Mean Corpuscular Volume 78 fL (80-100); Mean Platelet Volume 9.5 fL (9.1-12.4); NEUTROPHILS ABSOLUTE AUTO 4.86 K/mm3 (1.96-9.15); NEUTROPHILS PERCENT AUTO 72 % (41-73); Platelet Count 168 K/mm3 (150-400); RDW Coefficient Variation 18.1 % (11.7-14.2); RDW Standard Deviation 51.1 fL (35.1-46.3); Red Blood Cell Count 3.97 M/mm3 (4.30-5.90)
[2020-01-08 18:22] LABS: Alanine Aminotransfer (ALT/SGP 16 U/L (12-78); Albumin, Blood 3.6 g/dL (3.4-5.0); Albumin/Globulin Ratio 1.1 (0.8-1.8); Alk Phos 90 U/L (50-136); Anion Gap 7 mmol/L (6-16); Aspartate Aminotrans (AST/SGOT 13 U/L (12-37); Bilirubin, Total 0.5 mg/dL (0.1-1.0); Blood Urea Nitrogen 22 mg/dL (8-24); Bun/Creatinine Ratio 21.4 (12.0-20.0); CO2, Blood 25 mmol/L (21-32); Calcium, Blood 9.5 mg/dL (8.5-10.1); Chloride, Blood 107 mmol/L (98-108); Creatinine, Blood 1.03 mg/dL (0.60-1.20); Globulin, Blood 3.4 g/dL (2.2-4.0); Glomerular Filtration Rate >60 (60-); Glucose, Blood 104 mg/dL (70-99); Potassium, Blood 4.4 mmol/L (3.5-5.5); Sodium, Blood 139 mmol/L (136-145)
[2020-01-08 19:54] LABS: Source, Urine Clean Catch
[2020-01-08 19:57] LABS: Bilirubin, Urine Neg (Neg); Blood, Urine Neg (Neg); Glucose Qualitative, Urine Neg (Neg); Ketones, Urine Neg (Neg); Leukocyte Esterase, Urine Neg (Neg); Nitrite, Urine Neg (Neg); Protein, Urine Neg (Neg); Urobilinogen, Urine 1+ (Normal)
[2020-01-08 20:02] LABS: Appearance, Urine Clear (Clear); Color, Urine Yellow (P-Yellow)
[2020-01-08] MEDS ORDERED: Ambien10 MG PO (20:13)
[2020-01-08] MEDS ORDERED: LOSARTAN POTAS100 MG PO (20:14)
[2020-01-08] MEDS ORDERED: Flonase 0.05% N16 GM (20:14)
[2020-01-08] MEDS ORDERED: PANT40 PO (20:15)
[2020-01-08] MEDS ORDERED: FOLI1 PO (20:15)
[2020-01-08] MEDS ORDERED: ATOR40TA PO (20:15)
[2020-01-08] MEDS ORDERED: TAMS.4ER PO (20:17)
[2020-01-08] MEDS ORDERED: METO25 PO (20:17)
[2020-01-08] MEDS ORDERED: SERT100 PO (20:18)
[2020-01-08] MEDS ORDERED: Synthroid25 MCG PO (20:18)
[2020-01-08] MEDS ORDERED: CLOP75 PO (20:19)
[2020-01-08] MEDS ORDERED: Aspir 8181 MG PO (20:20)
[2020-01-08 20:33] LABS: International Normalized Ratio 1.02; Prothrombin Time Results 10.9 Sec (9.7-11.5)
[2020-01-08] MEDS ORDERED: B-121000 MC2 PO (20:43)
[2020-01-08] MEDS ORDERED: FURO40 PO (20:43)
[2020-01-08] MEDS ORDERED: VITAMIN D350 MCG PO (20:43)
[2020-01-08] MEDS ORDERED: CLON.5 PO (20:45)
[2020-01-08] MEDS ORDERED: Ferus150 MG PO (20:46)
[2020-01-08 21:10] LABS: Hematocrit 28.1 % (37.0-53.0); Hemoglobin 8.4 g/dL (13.5-17.5)
[2020-01-09 05:54] LABS: Hematocrit 28.9 % (37.0-53.0); Hemoglobin 8.3 g/dL (13.5-17.5); Mean Corpuscular HGB 22.1 pg (26.0-34.0); Mean Corpuscular HGB Conc 28.7 g/dL (31.5-36.5); Mean Corpuscular Volume 77 fL (80-100); Mean Platelet Volume 9.4 fL (9.1-12.4); Platelet Count 143 K/mm3 (150-400); RDW Coefficient Variation 17.8 % (11.7-14.2); RDW Standard Deviation 49.8 fL (35.1-46.3); Red Blood Cell Count 3.76 M/mm3 (4.30-5.90); White Blood Cell Count 5.78 K/mm3 (4.00-11.30)
[2020-01-09 06:17] LABS: Alanine Aminotransfer (ALT/SGP 14 U/L (12-78); Albumin, Blood 3.2 g/dL (3.4-5.0); Alk Phos 82 U/L (50-136); Anion Gap 7 mmol/L (6-16); Aspartate Aminotrans (AST/SGOT 14 U/L (12-37); Bilirubin, Total 0.5 mg/dL (0.1-1.0); Blood Urea Nitrogen 20 mg/dL (8-24); Bun/Creatinine Ratio 19.6 (12.0-20.0); CO2, Blood 26 mmol/L (21-32); Chloride, Blood 107 mmol/L (98-108); Creatinine, Blood 1.02 mg/dL (0.60-1.20); Globulin, Blood 3.3 g/dL (2.2-4.0); Glomerular Filtration Rate >60 (60-); Glucose, Blood 108 mg/dL (70-99); Potassium, Blood 3.7 mmol/L (3.5-5.5); Sodium, Blood 140 mmol/L (136-145); Total Protein, Blood 6.5 g/dL (6.4-8.2)
== END 2020-01-09 12:45 | disposition home or self-care (01) ==
LOC: ER 15:59 → ERHOLD 16:00
PROVIDERS: Emergency Medicine; Physician Assistant; ADMIT Internal Medicine
DX: K62.5 Hemorrhage of anus and rectum (principal); Z87.19 Personal history of other diseases of the digestive system; K29.80 Duodenitis without bleeding; K21.9 Gastro-esophageal reflux disease without esophagitis; D50.9 Iron deficiency anemia, unspecified; G47.33 Obstructive sleep apnea (adult) (pediatric); F32.9 Major depressive disorder, single episode, unspecified; Z86.73 Personal history of transient ischemic attack (TIA), and cerebral infarction without residual deficits; Z95.2 Presence of prosthetic heart valve; Z99.89 Dependence on other enabling machines and devices; Z79.82 Long term (current) use of aspirin; Z79.02 Long term (current) use of antithrombotics/antiplatelets; Z79.899 Other long term (current) drug therapy; I11.0 Hypertensive heart disease with heart failure; I50.32 Chronic diastolic (congestive) heart failure; E66.9 Obesity, unspecified; E11.9 Type 2 diabetes mellitus without complications; Z87.891 Personal history of nicotine dependence; Z68.43 Body mass index [BMI] 50.0-59.9, adult
CPT/HCPCS: 36415; 80053; 81003; 82272; 85014; 85018; 85025; 85027; 85610; 85730; 86850; 86900; 86901; 93005; 93010; 99284-25; G0378

== ENCOUNTER 2021-08-06 15:12 | Inpatient (IN) | payer OTHER ==
[~2021-08-06] VITALS: Ht 170.2 cm; Wt 150.7 kg
[~2021-08-06 15:12] MED LIST changes: +ATOR40TA PO; +Ambien10 MG PO; +Aspir 8181 MG PO; +CLOP75 PO; +FOLI1 PO; +FURO40 PO; +Ferus150 MG PO; +Flonase 0.05% N16 GM; +LOSARTAN POTAS100 MG PO; +METO25 PO; +SERT100 PO; +Synthroid25 MCG PO; +TAMS.4ER PO; +VITAMIN D350 MCG PO
[2021-08-06 15:48] LABS: Hematocrit 34.2 % (37.0-53.0); Hemoglobin 10.9 g/dL (13.5-17.5); Mean Corpuscular HGB Conc 31.9 g/dL (31.5-36.5); Mean Corpuscular Volume 82 fL (80-100); Mean Platelet Volume 9.6 fL (9.1-12.4); Platelet Count 105 K/mm3 (150-400); RDW Coefficient Variation 16.9 % (11.7-14.2); RDW Standard Deviation 50.4 fL (35.1-46.3); Red Blood Cell Count 4.19 M/mm3 (4.30-5.90); White Blood Cell Count 1.86 K/mm3 (4.00-11.30)
[2021-08-06 16:01] LABS: Alanine Aminotransfer (ALT/SGP 27 U/L (12-78); Albumin, Blood 2.7 g/dL (3.4-5.0); Albumin/Globulin Ratio 0.8 (0.8-1.8); Alk Phos 88 U/L (50-136); Anion Gap 7 mmol/L (6-16); Aspartate Aminotrans (AST/SGOT 58 U/L (12-37); Bilirubin, Total 0.7 mg/dL (0.1-1.0); Blood Urea Nitrogen 20 mg/dL (8-24); Bun/Creatinine Ratio 10.8 (12.0-20.0); CO2, Blood 26 mmol/L (21-32); Calcium, Blood 8.2 mg/dL (8.5-10.1); Chloride, Blood 100 mmol/L (98-108); Creatinine, Blood 1.86 mg/dL (0.60-1.20); Globulin, Blood 3.6 g/dL (2.2-4.0); Glomerular Filtration Rate 35 (60-); Glucose, Blood 147 mg/dL (70-99); Sodium, Blood 133 mmol/L (136-145); Total Protein, Blood 6.3 g/dL (6.4-8.2); Troponin I <0.015 ng/mL (0.000-0.040)
[2021-08-06 18:31] LABS: SARS-Cov-2 (COVID-19) PCR, MMC POSITIVE (NEGATIVE)
[2021-08-06 19:18] LABS: BAND PERCENT MAN 40 % (0-8); BASOPHILS ABSOLUTE MAN 0.01 K/mm3 (0.00-0.23); BASOPHILS PERCENT MAN 1 % (0-2); EOSINOPHILS PERCENT MAN 0 % (0-6); LYMPHOCYTES % ATYPICAL MANUAL 1 % (0-0); LYMPHOCYTES ABSOLUTE MAN 0.18 K/mm3 (0.84-5.20); LYMPHOCYTES PERCENT MAN 9 % (21-46); MONOCYTES ABSOLUTE MAN 0.11 K/mm3 (0.16-1.47); MONOCYTES PERCENT MAN 6 % (4-13); NEUTROPHILS ABSOLUTE MAN 1.54 K/mm3 (1.96-9.15); SEG NEUTROPHILS PERCENT MAN 43 % (41-73); TOTAL CELLS COUNTED 100
[2021-08-06 23:14] LABS: Source, Urine Clean Catch
[2021-08-06 23:23] LABS: Bilirubin, Urine Neg (Neg); Blood, Urine 4+ (Neg); Glucose Qualitative, Urine Neg (Neg); Ketones, Urine 1+ (Neg); Leukocyte Esterase, Urine Neg (Neg); Nitrite, Urine Neg (Neg); Protein, Urine 2+ (Neg); Specific Gravity, Urine 1.015 (1.003-1.022); Urobilinogen, Urine 1+ (Normal)
[2021-08-06 23:31] LABS: Appearance, Urine Hazy (Clear); Color, Urine Yellow (P-Yellow)
[2021-08-06 23:32] LABS: Amorphous Heavy (0-Heavy); Bacteria Few /hpf; Mucus Light (0-Heavy); Squamous Epithelial Cells Few /hpf (Few); White Blood Cells, Urine Rare /hpf (0-5)
[2021-08-07 04:59] LABS: Hematocrit 35.6 % (37.0-53.0); Hemoglobin 11.3 g/dL (13.5-17.5); Mean Corpuscular HGB 26.1 pg (26.0-34.0); Mean Corpuscular HGB Conc 31.7 g/dL (31.5-36.5); Mean Corpuscular Volume 82 fL (80-100); Mean Platelet Volume 9.3 fL (9.1-12.4); Platelet Count 105 K/mm3 (150-400); RDW Coefficient Variation 16.6 % (11.7-14.2); RDW Standard Deviation 50.2 fL (35.1-46.3); Red Blood Cell Count 4.33 M/mm3 (4.30-5.90); White Blood Cell Count 2.52 K/mm3 (4.00-11.30)
[2021-08-07 05:29] LABS: Albumin, Blood 2.6 g/dL (3.4-5.0); Albumin/Globulin Ratio 0.6 (0.8-1.8); Bilirubin, Total 0.5 mg/dL (0.1-1.0); Bun/Creatinine Ratio 13.5 (12.0-20.0); Calcium, Blood 8.4 mg/dL (8.5-10.1); Creatinine, Blood 1.56 mg/dL (0.60-1.20); Potassium, Blood 4.3 mmol/L (3.5-5.5); Total Protein, Blood 6.6 g/dL (6.4-8.2)
[2021-08-07 05:34] LABS: BAND PERCENT MAN 22 % (0-8); BASOPHILS PERCENT MAN 0 % (0-2); EOSINOPHILS PERCENT MAN 0 % (0-6); LYMPHOCYTES PERCENT MAN 8 % (21-46); MONOCYTES ABSOLUTE MAN 0.07 K/mm3 (0.16-1.47); MONOCYTES PERCENT MAN 3 % (4-13); NEUTROPHILS ABSOLUTE MAN 2.24 K/mm3 (1.96-9.15); SEG NEUTROPHILS PERCENT MAN 67 % (41-73); TOTAL CELLS COUNTED 100
--- NOTE | 2021-08-07 18:26 | NUR ---
PATIENT IS ALERT AND ORIENTED AND COOPERATIVE WITH CARE. LIQUID STOOL. INCONTINENT OF URINE. ON 10L OXIMYZER WITH 13L NON-REBREATHER. HE WEARS A CPAP WITH A BLEED IN AT NIGHT. NO C/O PAIN. CALLS APPROPRIATELY. WILL CONTINUE TO MONITOR
--- NOTE | 2021-08-08 05:25 | NUR ---
BUSINESS OFFICE SPECIALIST SUMMARY PT A/O X4. PT IS ON 15L WITH 100% SATTING IN THE MID 90'S. PT REFUSED TO WEAR CPAP TONIGHT. AMBULATES WITH 2 ASSIST WITH GAITBELT TO BSC. INCONTIENT, ATTENDS IN PLACE. NO ACUTE CHANGES, BED ALARM ON, CALL LIGHT WITHIN REACH, WILL CONTINUE TO MONITOR.
[2021-08-08 05:36] LABS: Hematocrit 37.4 % (37.0-53.0); Hemoglobin 11.9 g/dL (13.5-17.5); Mean Corpuscular HGB Conc 31.8 g/dL (31.5-36.5); Mean Corpuscular Volume 82 fL (80-100); Mean Platelet Volume 9.2 fL (9.1-12.4); Platelet Count 146 K/mm3 (150-400); RDW Coefficient Variation 16.8 % (11.7-14.2); RDW Standard Deviation 49.9 fL (35.1-46.3); Red Blood Cell Count 4.57 M/mm3 (4.30-5.90)
[2021-08-08 06:13] LABS: Bun/Creatinine Ratio 16.8 (12.0-20.0); Calcium, Blood 8.8 mg/dL (8.5-10.1); Creatinine, Blood 1.25 mg/dL (0.60-1.20); Potassium, Blood 4.7 mmol/L (3.5-5.5)
--- NOTE | 2021-08-08 18:29 | NUR ---
THE PATIENT IS ALERT AND ORIENTED AND COOPERATIVE WITH CARE. HE IS ON 15L OXYMIZER AND 15L NON-REBREATHER. CONTINUOUS PULSE OX SHOWS O2 SATURATION OF 92% AT THIS TIME. HE IS 1PA TO THE BSC. INCONTINENT OF URINE. NO C/O PAIN. WILL CONTINUE TO MONITOR
--- NOTE | 2021-08-09 01:42 | NUR ---
2220 PT HAS PULLED OFF CPAP MULTIPLE TIMES AND DESATS QUICK. PT DESATTED INTO THE 40'S. PT IS A/O X1 TO SELF, USUALLY CONFUSED AT NIGHT. HOSPITALIST DR. BROWN MADE AWARE. BILATERAL SOFT WRIST RESTRAINTS AND RAILS X4 ORDERED AND APPLIED. PT UNABLE TO SAT ABOVE 80% WITH CPAP SETTINGS. DR. BROWN MADE AWARE AND ORDERED BIPAP. BIPAP APPLIED AND IN PLACE. PT MAINTAINING SATS IN THE MID 90'S. WITH BIPAP.
--- NOTE | 2021-08-09 02:01 | NUR ---
AROUND 0100 PT MORE FIDGITY AND HAS PULLED OFF BIPAP MASK OFF REGARDLESS OF WRIST RESTRAINTS. PT REQUIRES MORE MONITORING. DR. VIDAL CALLED AND ORDER TO TRANSFER TO PCU. REPORT GIVEN TO ACID CORRECTION HAND. PT LEFT MEDICAL UNIT AND BEGAN TO TRANSFER TO PCU AT 0200.
[2021-08-09 03:01] LABS: Base Excess Venous 2.8 mmol/L; Bicarbonate Venous 26.5 mmol/L (24.0-30.0); PCO2 Venous 40.1 mmHg (38-42); PO2 Venous 55.8 mmHg (38-42); pH Blood Venous 7.44 (7.34-7.37)
--- NOTE | 2021-08-09 07:11 | NUR ---
ASSUMED CARE: PT RESTING IN BED AT THIS TIME WITH BILATERAL WRIST RESTRAINTS ON. BIPAP IN PLACE AT 16/10 AND 90%. PRECEDEX GTT AT 0.3MCG AT THIS TIME. NO ACUTE NEEDS OR CONCERNS. PT APPEARS TO BE RESTING QUIETLY
--- NOTE | 2021-08-09 07:25 | NUR ---
SHIFT SUMMARY PATIENT IS RESTING COMFORTABLY IN BED. BED IS IN LOW POSITION. CALL LIGHT IS IN REACH. THE PATIENT IS CURRENTLY ON PRECEDEX AT O.3 MCG/KG/HR FOR SEDATION. HE WAS GETTING AGITATED AND AGGRESSIVE WITH STAFF. HE IS CURRENTLY ON 2 SOFT RESTRAINTS. THE PATIENT IS CURRENTLY ON THE BIPAP MACHINE 22/08 AT 90% FIO2 SATURATING ABOVE 97% AND HOLDING. THE PATIENT DOES RESOPOND WHEN YOU LIGHTLY SHAKING HIM AND CALL OUT HIS NAME THEN FALLS BACK TO SLEEP. VITALS HAVE BEEN STABLE EXCEPT FOR A DIP IN BP WHEN RECHECKED HIS BP RECOVERED. WILL CONTINUE TO MONITOR. REPORT GIVEN TO PIPPA ALBERTO.
--- NOTE | 2021-08-09 09:10 | NUR ---
ATTEMPTED TO GIVE PT A BREAK FROM BIPAP FOR BREAKFAST BUT SOON MASK WAS REMOVED PT BECAME AGITATED AND FIDGETY. INSTRUCTED PT TO TRY TO RELAX SO I COULD FEED HIM BREAKFAST. PILLS WERE MIXED WITH OATMEAL AND PT SPIT OATMEAL OUT. CONTINUED TO FIDGET AND NOT FOLLOW DIRECTIONS. SATURATIONS DROPPED TO 84%. REPLACED MASK AND INCREASED FIO2 TO 100%. RT AWARE. PRECEDEX INCREASED TO 0.5MCG/KG. CALL TO DR BARNETT WHO STATES HE WILL BE HERE TO SEE PT SOON. WILL ADDRESS FURTHER NEEDS WITH AT THAT TIME.
--- NOTE | 2021-08-09 09:49 | NUR ---
DR BARNETT CAME TO SEE PT AND DISCUSSED AM MED PASS. DR AWARE THAT PT DID NOT RECIEVE ANY OF HIS ORAL MEDS. DR STATED HE WOULD REVIEW ORDERED MEDS AND CHANGE ESSENTIALS TO OTHER ROUTES. AWARE OF PT'S CURRENT BIPAP SETTINGS AND STATUS WITH AGITATION
[2021-08-09 10:55] LABS: Source, Urine Catheter
[2021-08-09 10:57] LABS: Blood, Urine 2+ (Neg); Glucose Qualitative, Urine Neg (Neg); Ketones, Urine 1+ (Neg); Leukocyte Esterase, Urine 1+ (Neg); Nitrite, Urine Neg (Neg); Protein, Urine 3+ (Neg); Specific Gravity, Urine 1.025 (1.003-1.022); Urobilinogen, Urine 2+ (Normal)
[2021-08-09 10:59] LABS: Appearance, Urine Hazy (Clear); Bilirubin, Urine 1+ (Neg); Color, Urine Yellow (P-Yellow)
[2021-08-09 11:04] LABS: Mucus Mod (0-Heavy)
[2021-08-09 11:05] LABS: Bacteria Mod /hpf; Red Blood Cells, Urine 0-2 /hpf (0-2); Squamous Epithelial Cells Few /hpf (Few)
--- NOTE | 2021-08-09 13:40 | NUR ---
PT'S WORK OF BREATHING CHANGED TO INCREASED ACCESORY AND DIAPHRAGM MUSCLE USE. BIPAP 16/10 WITH 90% FIO2, SATTING 93%. CALL TO DR BARNETT WITH THESE CHANGES. DR BARNETT REQUESTED PULMONARY TO COME ASSESS PT TO DETERMINE PLAN OF ACTION. DR OSBORNE CAME TO ASSESS PT AND IS CURRENTLY SPEAKING WITH PT'S FAMILY REGARDING CODE STATUS. AWAITING WORD FROM HIM ON FURTHER PLANS. REGIONAL GEODETIC ADVISOR AWARE
--- NOTE | 2021-08-09 14:22 | NUR ---
DR KENNEDY SPOKE WITH PT'S DAUGHTER WHO WAS PLANNING TO SPEAK WITH PT'S TO DETERMINE IF PT SHOULD STILL BE FULL CODE. ICU CONTENT ANALYST CAME TO SEE PT AND RELAYED THIS CONVERSATION TO THIS NURSE. FAMILY GOING TO TAKE AN HOUR TO DECIDE AND THEN DR KENNEDY WILL CALL THEM BACK. PCU CONTENT ANALYST AWARE. RT AWARE THAT SETTINGS TO CPAP WERE CHANGED BY PULMONOLOGY, 08/16 WITH 90% FIO2.
--- NOTE | 2021-08-09 18:03 | NUR ---
PT BECAME AGITATED AND THRASHING IN BED. DESATURATED INTO 80S. INCREASED PRECEDEX TO 0.7MCG/KG. MEDICATED WITH ATIVAN AND MORPHINE FOR AIR HUNGER. MEDICATED FOR HYPERTENSION. CALL TO DR BARNETT TO UPDATE HIM ON STATUS. PT IS NOW DNR BUT IS BREATHING IN THE 50S AT TIMES. COPY COORDINATOR ATTEMPTING TO CALL PT'S FAMILY TO UPDATE THEM.
[2021-08-10 04:08] LABS: Hematocrit 35.2 % (37.0-53.0); Hemoglobin 11.1 g/dL (13.5-17.5); Mean Corpuscular HGB 26.1 pg (26.0-34.0); Mean Corpuscular HGB Conc 31.5 g/dL (31.5-36.5); Mean Corpuscular Volume 83 fL (80-100); Mean Platelet Volume 9.8 fL (9.1-12.4); Platelet Count 128 K/mm3 (150-400); RDW Coefficient Variation 17.1 % (11.7-14.2); RDW Standard Deviation 51.2 fL (35.1-46.3); Red Blood Cell Count 4.26 M/mm3 (4.30-5.90); White Blood Cell Count 7.73 K/mm3 (4.00-11.30)
[2021-08-10 04:34] LABS: Bun/Creatinine Ratio 20.5 (12.0-20.0); Calcium, Blood 8.7 mg/dL (8.5-10.1); Creatinine, Blood 1.66 mg/dL (0.60-1.20); Potassium, Blood 4.7 mmol/L (3.5-5.5)
--- NOTE | 2021-08-10 06:33 | NUR ---
PATIENT BEEN LETHARGIC BUT AWAKENS TO TOUCH AND VERBAL STIMULI, ANXIOUS THROUGHOUT THE NIGHT REQUIRING TO BE ON PRECEDEX AT 1.4MCG/KG/HR AT 52.5 ML/HR, PATIENT SBP> 160 X 1 REQUIRING IVP LOPRESSOR. AROUND 0430 PATIENT WAS TREMULOUS WARM TO TOUCH, BED BATH GIVEN TEMPERATURE ON TEMPORAL WAS 98.7, ON NECK WAS 100.2, RECTAL TAKEN 103.5 RECEIVED APAP 650MG SUPPOSITORY, ICE PACKS AND TEMPERATURE CAME DOWN TO 98.2 TEMPORAL, TREMORS SUBSIDED, NEW ORDERS RECEIVED FOR LABS, OBTAINED BLOOD CULTURES PRIOR TO STARTING IV ANTIBIOTICS, LACTAID RINGERS 1000ML BOLUS, PIV 20 GAUGE IN L-HAND PLACED. PATIENT PRESSORS REMAIN LOW ON FIFTEEN MINUTE CYCLE, REQUEST TO BE CALLED IF MAP REMAINS < 65.
--- NOTE | 2021-08-10 07:30 | NUR ---
CARE ASSUMPTION PATIENT WAS AROUSABLE WITH A STERNUM RUB, OPENED EYES AND GROANED, BUT QUICKLY FELL BACK ASLEEP. BP STABLE, BUT UNABLE TO GET A GOOD SPO2 READING. PATIENT LUNGS DIM AND COARSE. HEART TONES GOOD. ABD SOFT AND DISTENDED. WEAK PULSES PERHIPERALLY AND PEDIS. PATIENT FEET BILATERALLY APPEARED TO STAR TO MOLT. THIS RN AND ANJUM RN GOING TO CONTACT FAMILY AND MD ABOUT SWITCHING PATIENT TO COMFORT CARE. WILL CONTINUE TO MONITOR AND PROVIDE CARE.
--- NOTE | 2021-08-10 09:53 | NUR ---
UPDATE PATIENT ON COMFORT CARE. FAMILY AT BED SIDE. PATIENT RECEIVED ATIVAN AND MORPHINE PER EMAR. WILL CONTINUE TO MONITOR AND PROVIDE CARE.
--- NOTE | 2021-08-10 10:53 | NUR ---
Spiritual care visit conducted. Patient's spouse, Naomi and step daughter, Ivelisse are bedside. I conduct a life review focusing on the highlights of the patient's character and heart. I provide prayer and a also a calming presence with family through the of patient and then provide grief support to family after patient's demise. Family respond well and show signs of being comforted.
--- NOTE | 2021-08-10 11:51 | NUR ---
UPDATE PATIENT TIME OF IS 1026. MD NOTIFED AND CHARGE NURSE NOTIFED. PATIENT FAMILY WAS AT BEDSIDE. EVINN FAMILY HAS PATIENT BELONGINGS AND THEY TOOK THEM WITH THEM. POST MORTEM CARE PROVIDED BY THIS RN AND ANJUM RN. PATIENT PICKED UP BY HOME.
== END 2021-08-10 11:46 | DRG 177 ==
LOC: ER 15:12 → MEDS 18:13 → PCU 18:13 → MEDS 20:18 → PCU 08-09 02:00
PROVIDERS: Family Medicine; Internal Medicine; Physician Assistant; ADMIT Internal Medicine
PROC: XW033E5 Introduction of Remdesivir Anti-infective into Peripheral Vein, Percutaneous Approach, New Technology Group 5 (ICD-10-PCS; 2021-08-06)
PROC: 8E0ZXY6 Isolation (ICD-10-PCS; 2021-08-06)
PROC: 5A0945A Assistance with Respiratory Ventilation, 24-96 Consecutive Hours, High Flow/Velocity Cannula (ICD-10-PCS; 2021-08-06)
PROC: 3E0333Z Introduction of Anti-inflammatory into Peripheral Vein, Percutaneous Approach (ICD-10-PCS; principal; 2021-08-07)
PROC: 5A09357 Assistance with Respiratory Ventilation, Less than 24 Consecutive Hours, Continuous Positive Airway Pressure (ICD-10-PCS; 2021-08-09)
DX: U07.1 COVID-19 (principal); J96.01 Acute respiratory failure with hypoxia; J12.82 Pneumonia due to coronavirus disease 2019; D61.818 Other pancytopenia; I50.32 Chronic diastolic (congestive) heart failure; Z68.43 Body mass index [BMI] 50.0-59.9, adult; N17.9 Acute kidney failure, unspecified; G47.33 Obstructive sleep apnea (adult) (pediatric); Z86.73 Personal history of transient ischemic attack (TIA), and cerebral infarction without residual deficits; Z66 Do not resuscitate; Z95.2 Presence of prosthetic heart valve; K57.90 Diverticulosis of intestine, part unspecified, without perforation or abscess without bleeding; E66.9 Obesity, unspecified; Z51.5 Encounter for palliative care; E11.9 Type 2 diabetes mellitus without complications; I11.0 Hypertensive heart disease with heart failure; D64.9 Anemia, unspecified; F32.9 Major depressive disorder, single episode, unspecified; N40.0 Benign prostatic hyperplasia without lower urinary tract symptoms; E03.9 Hypothyroidism, unspecified; Z96.653 Presence of artificial knee joint, bilateral; Z98.890 Other specified postprocedural states; Z87.891 Personal history of nicotine dependence; Z79.82 Long term (current) use of aspirin; Z79.02 Long term (current) use of antithrombotics/antiplatelets; Z79.899 Other long term (current) drug therapy
CPT/HCPCS: 36415; 71045; 71260; 76770; 80048; 80053; 81001; 82803; 82947; 83036; 83605; 84145; 84443; 84484; 85025; 85027; 85379; 87040; 87077; 87086; 87147; 87186; 93005; 93010; 94660; 94762; 96365; 99285-25; A9270; C9113; J0360; J0456; J0696; J1100; J1630; J1650; J1940; J2060; J2270; J7050; J7120; Q9967; U0004